=== PATIENT | male | born 1970 | race Caucasian/White ===

== ENCOUNTER 2023-03-24 09:29 | Inpatient (IN) | payer BC, OTHER ==
[~2023-03-24] VITALS: Ht 198.1 cm; Wt 99.8 kg
[2023-03-24] VITALS (7 sets, daily range): BP systolic 125–198; BP diastolic 99–142; TEMP 97.4–98.2; O2SAT 90–96
[2023-03-24] MEDS ORDERED: VALPROATE 250 MG in IV D5W 100 ML IV STA (09:52)
[2023-03-24 10:16] LABS: BASOPHILS # (AUTO) 0.2 K/uL (0.0-0.2); BASOPHILS % (AUTO) 2.9 % (0.0-2.0); EOSINOPHILS % (AUTO) 12.1 % (0.0-6.0); HEMATOCRIT 27 % (39-51); HEMOGLOBIN 8.8 g/dL (13.5-17.5); LYMPHOCYTES # (AUTO) 0.9 K/uL (0.8-4.8); LYMPHOCYTES % (AUTO) 11.1 % (20.0-44.0); MEAN CORPUSCULAR HEMOGLOBIN 31 PG (26.0-33.0); MEAN CORPUSCULAR HGB CONC 33 g/dl (31.0-36.0); MEAN CORPUSCULAR VOLUME 94 fL (80-96); MONOCYTES # (AUTO) 0.5 K/uL (0.1-1.30); MONOCYTES % (AUTO) 5.6 % (2.0-12.0); NEUTROPHILS # (AUTO) 5.6 K/uL (1.8-8.9); NEUTROPHILS % (AUTO) 68.3 % (43.0-81.0); PLATELET COUNT (AUTO) 178 K/uL (150-450); RED BLOOD CELL COUNT(AUTO) 2.83 MIL/uL (4.5-6.0); RED CELL DISTRIBUTION WIDTH 18.6 % (11.5-15.0); WHITE BLOOD COUNT (AUTO) 8.2 K/uL (4.3-11.0)
[2023-03-24] MEDS ORDERED: CARV25TA PO (10:20)
[2023-03-24] MEDS ORDERED: AMLO10TA4 PO (10:20)
[2023-03-24 10:29] LABS: MAGNESIUM 2.2 mg/dL (1.8-2.4); PHOSPHORUS 6.1 mg/dL (2.5-4.9)
[2023-03-24 10:32] LABS: ALBUMIN 3.5 g/dL (3.4-5.0); BILIRUBIN,DIRECT 0.7 mg/dL (0.0-0.2); BILIRUBIN,TOTAL 1.3 mg/dL (0.2-1.0); CALCIUM, SERUM 8.8 mg/dL (8.5-10.1); POTASSIUM 5.1 mmol/L (3.5-5.1); TOTAL PROTEIN, SERUM 8.5 g/dL (6.4-8.2)
[2023-03-24 10:37] LABS: CREATININE 7.9 mg/dL (0.6-1.3)
[2023-03-24] MEDS ORDERED: DILTIAZEM HCL 25 MG IV IV ONE ×2 (11:00→12:30)
[2023-03-24] MEDS ORDERED: DILTIAZEM HCL 25 MG IV ONE (11:15)
[2023-03-24] MEDS ORDERED: Z GUARD REMEDY 4 OZ OINT TP PRN (12:30)
[2023-03-24] MEDS ORDERED: ONDANSETRON HCL/PF 4 MG/2 ML VIAL IVP PRN (12:30)
[2023-03-24] MEDS ORDERED: ACETAMINOPHEN 325 MG TABLET PO PRN (12:30)
[2023-03-24] MEDS ORDERED: AMLODIPINE BESYLATE 10 MG TABLET PO SCH (16:00)
[2023-03-24] MEDS: APIXABAN 2.5 MG TABLET PO SCH ×2 (16:06→16:40)
[2023-03-24] MEDS ORDERED: hydrALAZINE HCL 25 MG TABLET PO PRN (18:30)
[2023-03-24] MEDS ORDERED: CARVEDILOL 12.5 MG TABLET PO SCH (21:00)
[2023-03-24] MEDS: CLONIDINE HCL 0.1 MG TABLET PO ONE (23:52)
[2023-03-25] VITALS (33 sets, daily range): BP systolic 88–211; BP diastolic 65–144; TEMP 96–98; O2SAT 90–100
[2023-03-25] MEDS: CLONIDINE HCL 0.1 MG TABLET PO ONE (00:13)
[2023-03-25] MEDS ORDERED: hydrALAZINE HCL IV 20 MG VIAL IV PRN (00:30)
[2023-03-25 01:14] LABS: BASOPHILS # (AUTO) 0.1 K/uL (0.0-0.2); BASOPHILS % (AUTO) 0.8 % (0.0-2.0); EOSINOPHILS # (AUTO) 2.5 K/uL (0.0-0.7); EOSINOPHILS % (AUTO) 19.2 % (0.0-6.0); HEMATOCRIT 27 % (39-51); HEMOGLOBIN 8.9 g/dL (13.5-17.5); LYMPHOCYTES # (AUTO) 0.8 K/uL (0.8-4.8); LYMPHOCYTES % (AUTO) 5.8 % (20.0-44.0); MEAN CORPUSCULAR HEMOGLOBIN 31 PG (26.0-33.0); MEAN CORPUSCULAR HGB CONC 33 g/dl (31.0-36.0); MEAN CORPUSCULAR VOLUME 95 fL (80-96); MONOCYTES # (AUTO) 0.5 K/uL (0.1-1.30); MONOCYTES % (AUTO) 3.9 % (2.0-12.0); NEUTROPHILS # (AUTO) 9.2 K/uL (1.8-8.9); NEUTROPHILS % (AUTO) 70.3 % (43.0-81.0); PLATELET COUNT (AUTO) 173 K/uL (150-450); RED BLOOD CELL COUNT(AUTO) 2.87 MIL/uL (4.5-6.0); RED CELL DISTRIBUTION WIDTH 18.3 % (11.5-15.0); WHITE BLOOD COUNT (AUTO) 13.1 K/uL (4.3-11.0)
[2023-03-25] MEDS ORDERED: NICARDIPINE IN DEXTROSE,ISO-OS 200 ML IV ONE (01:21)
[2023-03-25 01:25] LABS: CREATININE 6.4 mg/dL (0.6-1.3); MAGNESIUM 2.3 mg/dL (1.8-2.4); POTASSIUM 4.3 mmol/L (3.5-5.1)
[2023-03-25 01:30] LABS: ALBUMIN 3.5 g/dL (3.4-5.0); BILIRUBIN,DIRECT 0.9 mg/dL (0.0-0.2); BILIRUBIN,TOTAL 1.5 mg/dL (0.2-1.0); TOTAL PROTEIN, SERUM 8.6 g/dL (6.4-8.2)
[2023-03-25] MEDS ORDERED: NICARDIPINE HCL 40 MG in IV NS 0.9% 184 ML IV PRN (01:30)
[2023-03-25] MEDS ORDERED: PROTHROMBIN COMPLEX CONCENTR 500 UNIT VIAL IV ONE (01:30)
[2023-03-25 05:12] LABS: BASOPHILS # (AUTO) 0.1 K/uL (0.0-0.2); BASOPHILS % (AUTO) 0.6 % (0.0-2.0); EOSINOPHILS # (AUTO) 0.4 K/uL (0.0-0.7); EOSINOPHILS % (AUTO) 4.8 % (0.0-6.0); HEMATOCRIT 23 % (39-51); HEMOGLOBIN 7.8 g/dL (13.5-17.5); LYMPHOCYTES # (AUTO) 0.4 K/uL (0.8-4.8); LYMPHOCYTES % (AUTO) 4.8 % (20.0-44.0); MEAN CORPUSCULAR HEMOGLOBIN 32 PG (26.0-33.0); MEAN CORPUSCULAR HGB CONC 34 g/dl (31.0-36.0); MEAN CORPUSCULAR VOLUME 94 fL (80-96); MONOCYTES # (AUTO) 0.4 K/uL (0.1-1.30); MONOCYTES % (AUTO) 4.5 % (2.0-12.0); NEUTROPHILS # (AUTO) 7.6 K/uL (1.8-8.9); NEUTROPHILS % (AUTO) 85.3 % (43.0-81.0); PLATELET COUNT (AUTO) 150 K/uL (150-450); RED BLOOD CELL COUNT(AUTO) 2.46 MIL/uL (4.5-6.0); RED CELL DISTRIBUTION WIDTH 18.1 % (11.5-15.0); WHITE BLOOD COUNT (AUTO) 8.9 K/uL (4.3-11.0)
[2023-03-25] MEDS ORDERED: PROPOFOL 100 ML IV PRN (05:30)
[2023-03-25] MEDS ORDERED: MANNITOL 12.5 GM/50 ML VIAL IV ONE (05:30)
[2023-03-25 05:34] LABS: ALBUMIN 3.2 g/dL (3.4-5.0); BILIRUBIN,TOTAL 1.3 mg/dL (0.2-1.0); CALCIUM, SERUM 8.7 mg/dL (8.5-10.1); CREATININE 6.7 mg/dL (0.6-1.3); MAGNESIUM 2.4 mg/dL (1.8-2.4); PHOSPHORUS 5.6 mg/dL (2.5-4.9); TOTAL PROTEIN, SERUM 7.7 g/dL (6.4-8.2)
[2023-03-25] MEDS ORDERED: LEVETIRACETAM (500MG) 1,000 MG in IV NS 0.9% 90 ML IV SCH (06:00)
[2023-03-25] MEDS ORDERED: MANNITOL IV ONE (06:01)
[2023-03-25] MEDS ORDERED: LEVETIRACETAM (500MG) 500 MG/5 ML VIAL IV ONE (06:02)
[2023-03-25 06:41] LABS: ABG BASE EXCESS -3.4 mmol/L; ABG OXYGEN SATURATION 96.1 % (92.0-98.5); ABG PCO2 35.8 mmHg (35.0-45.0); ABG PH 7.389 (7.350-7.450); ABG PO2 97.7 mmHg (75.0-100.0); ABG TOTAL HEMOGLOBIN 9.2 G/dL (13.5-18.0); AaDO2 579.5 mmHg; COHb 0.3 % (0.5-1.5); MetHb 0.2 % (0.0-1.5); O2Hb 95.6 % (94.0-97.0); SITE, ABG Left Radial; VENT MODE, BG AC 16 550 100% +5
[2023-03-25 06:41] LABS: ABG BASE EXCESS -2.1 mmol/L; ABG OXYGEN SATURATION 95.4 % (92.0-98.5); ABG PCO2 30.6 mmHg (35.0-45.0); ABG PH 7.457 (7.350-7.450); ABG PO2 84.3 mmHg (75.0-100.0); ABG TOTAL HEMOGLOBIN 9.4 G/dL (13.5-18.0); AaDO2 598.1 mmHg; COHb 0.3 % (0.5-1.5); MetHb 0.1 % (0.0-1.5); SITE, ABG Right Radial; VENT MODE, BG NRB 15L
[2023-03-25] MEDS ORDERED: IV Sodium Chloride 3% 500 ML 500 ML IV ONE (07:30)
[2023-03-25] MEDS ORDERED: NOREPINEPHRINE 8 MG in IV NS 0.9% 242 ML IV PRN ×2 (08:30→09:00)
[2023-03-25] MEDS ORDERED: AMLODIPINE BESYLATE 10 MG TABLET PO SCH (09:00)
[2023-03-25] MEDS ORDERED: ROCURONIUM BROMIDE 50 MG/5 ML IV ONE (09:06)
[2023-03-25] MEDS ORDERED: EPINEPHRINE (1:10,000) SYRINGE 1 MG/10 ML DISP.SYRIN IVP ONE (10:44)
[2023-03-25] MEDS ORDERED: ATROPINE SULFATE 1 MG/10 ML DISP.SYRIN IV ONE (10:44)
== END 2023-03-25 10:45 | disposition short-term general hospital (02) | DRG 64 ==
LOC: ER 09:33 → TELE 13:55 → ICU 03-25 00:42
PROVIDERS: ADMIT Internal Medicine; ATTEND Nurse Practitioner Family
PROC: 05HC33Z Insertion of Infusion Device into Left Basilic Vein, Percutaneous Approach (ICD-10-PCS; 2023-03-24)
PROC: 5A1D70Z Performance of Urinary Filtration, Intermittent, Less than 6 Hours Per Day (ICD-10-PCS; 2023-03-24)
PROC: 5A1935Z Respiratory Ventilation, Less than 24 Consecutive Hours (ICD-10-PCS; principal; 2023-03-25)
PROC: 0BH17EZ Insertion of Endotracheal Airway into Trachea, Via Natural or Artificial Opening (ICD-10-PCS; 2023-03-25)
PROC: 30233K1 Transfusion of Nonautologous Frozen Plasma into Peripheral Vein, Percutaneous Approach (ICD-10-PCS; 2023-03-25)
PROC: 30233M1 Transfusion of Nonautologous Plasma Cryoprecipitate into Peripheral Vein, Percutaneous Approach (ICD-10-PCS; 2023-03-25)
DX: I61.5 Nontraumatic intracerebral hemorrhage, intraventricular (principal); G93.5 Compression of brain; I50.33 Acute on chronic diastolic (congestive) heart failure; N18.6 End stage renal disease; I13.2 Hypertensive heart and chronic kidney disease with heart failure and with stage 5 chronic kidney disease, or end stage renal disease; G91.9 Hydrocephalus, unspecified; D68.59 Other primary thrombophilia; E87.1 Hypo-osmolality and hyponatremia; G93.40 Encephalopathy, unspecified; Z59.00 Homelessness unspecified; Z79.899 Other long term (current) drug therapy; E11.22 Type 2 diabetes mellitus with diabetic chronic kidney disease; D63.8 Anemia in other chronic diseases classified elsewhere; E87.5 Hyperkalemia; I48.91 Unspecified atrial fibrillation; Z99.2 Dependence on renal dialysis
CPT/HCPCS: 36415; 36600; 70450-TC; 71045-TC; 80048-TC; 80053-TC; 80076-TC; 82803-TC; 82962-TC; 83690-TC; 83735-TC; 84100-TC; 84484-TC; 85025-TC; 86850-TC; 93307-TC; 94002-TC; A4223; A4624; G0378; J0171; J0360; J0461; J1953; J2150; J2405; J3490; J7030; J7040; J7050; J7060; J7168; P9012; P9017